=== PATIENT | male | born 1985 | race Caucasian/White ===

== ENCOUNTER 2024-03-16 23:09 | Observation (INO) | payer OTHER ==
--- NOTE | 2024-03-16 23:31 | ED ---
General Adult HPI - General Chief complaint: Nausea/Vomiting/Diarrhea Stated complaint: nausea vomitting Time Seen by Provider: 03/16/24 23:10 Source: patient, EMS Mode of arrival: EMS Limitations: no limitations - History of Present Illness Initial comments: 38-year-old male who is transferred to our facility from [facility] for intractable nausea and vomiting. Patient has been hospitalized multiple times for this. They do state that he has cyclic vomiting possibly due to marijuana. He smokes marijuana twice a week. He does have several medications to take at home when he starts vomiting include Reglan and Compazine suppositories. Patient was hospitalized last week at the [facility] for the vomiting as he was also in kidney failure. When the patient was evaluated in the emergency department today they feel that he needs higher level of care and therefore transfer the patient to us. Currently his nausea is at a 2. He denies any abdominal pain. He has not vomited since he received his medications at the outside facility at 8:00. No other alleviating, precipitating or modifying factors - Related Data Allergies Allergy/AdvReac Type Severity Reaction Status Date / Time No Known Allergies Allergy Verified 03/16/24 23:17 Review of Systems ROS Statement: Those systems with pertinent positive or pertinent negative responses have been documented in the HPI. ROS Other: All systems not noted in ROS Statement are negative. Past Medical History Additional Past Medical History / Comment(s): gastritis Past Surgical History: No Surgical Hx Reported Past Psychological History: No Psychological Hx Reported Smoking Status: Never smoker Past Alcohol Use History: None Reported Past Drug Use History: Marijuana General Exam Limitations: no limitations General appearance: alert, in no apparent distress Head exam: Present: atraumatic, normocephalic, normal inspection Eye exam: Present: normal appearance, PERRL, EOMI. Absent: scleral icterus, conjunctival injection, periorbital swelling ENT exam: Present: normal exam, mucous membranes moist Neck exam: Present: normal inspection. Absent: tenderness, meningismus, lymphadenopathy Respiratory exam: Present: normal lung sounds bilaterally. Absent: respiratory distress, wheezes, rales, rhonchi, stridor Cardiovascular Exam: Present: regular rate, normal rhythm, normal heart sounds. Absent: systolic murmur, diastolic murmur, rubs, gallop, clicks GI/Abdominal exam: Present: soft, normal bowel sounds. Absent: distended, tenderness, guarding, rebound, rigid Extremities exam: Present: normal inspection, full ROM, normal capillary refill. Absent: tenderness, pedal edema, joint swelling, calf tenderness Back exam: Present: normal inspection Neurological exam: Present: alert, oriented X3, CN II-XII intact Psychiatric exam: Present: normal affect, normal mood Skin exam: Present: warm, dry, intact, normal color. Absent: rash Course Vital Signs 03/16/24 23:10 Pulse Rate 85 Respiratory 18 Rate Blood Pressure 116/72 O2 Sat by Pulse 95 Oximetry Medical Decision Making - Medical Decision Making Was pt. sent in by a medical professional or institution (, PA, ACTIMIZE ARCHITECT, urgent care, hospital, or custodial...) When possible be specific @ -Patient was transferred from [facility] Did you speak to anyone other than the patient for history (EMS, parent, family, police, friend...)? What history was obtained from this source @ -I spoke with EMS and the transferring physician from [facility] Did you review nursing and triage notes (agree or disagree)? Why? @ -[I reviewed and agree with nursing and triage notes] Were old charts reviewed (outside hosp., previous admission, EMS record, old EKG, old radiological studies, urgent care reports/EKG's, custodial records)? Report findings @ -I reviewed patient's laboratory studies and MAR from [facility] from today. I also reviewed his blood work from March 08 and Differential Diagnosis (chest pain, altered mental status, abdominal pain women, abdominal pain men, vaginal bleeding, weakness, fever, dyspnea, syncope, headache, dizziness, GI bleed, back pain, seizure, CVA, palpatations, mental h ealth, musculoskeletal)? @ -Differential Abdominal Pain Men: Appendicitis, cholecystitis, diverticulosis, ischemic bowel, pancreatitis, hepatitis, UTI, gastroenteritis, AAA, incarcerated hernia, bowel obstruction, constipation, inflammatory bowel, hepatitis, peptic ulcer disease, splenic infarction, perforated viscus, testicular torsion, this is not meant to be an all-inclusive list EKG interpreted by me (3pts min.). @ -Not done X-rays interpreted by me (1pt min.). @ -[None done] CT interpreted by me (1pt min.). @ -[None done] U/S interpreted by me (1pt. min.). @ -[None done] What testing was considered but not performed or refused? (CT, X-rays, U/S, labs)? Why? @ -[None] What meds were considered but not given or refused? Why? @ -[None] Did you discuss the management of the patient with other professionals (professionals i.e. , PA, ACTIMIZE ARCHITECT, lab, RT, psych nurse, child protective services social worker, lease administrator, teacher, deportation officer, case preparer and liner)? Give summary @ -Spoke with Alex from [facility] will accept the patient Was smoking cessation discussed for >3mins.? @ -[No] Was critical care preformed (if so, how long)? @ -[No] Were there social determinants of health that impacted care today? How? (Home lessness, low income, unemployed, alcoholism, drug addiction, transportation, low edu. Level, literacy, decrease access to med. care, penitentiary, rehab)? @ -[No] Was there de-escalation of care discussed even if they declined (Discuss DNR or withdrawal of care, Hospice)? DNR status @ -[No] What co-morbidities impacted this encounter? (DM, HTN, Smoking, COPD, CAD, Cancer, CVA, ARF, Chemo, Hep., AIDS, mental health diagnosis, sleep apnea, morbid obesity)? @ -[None] Was patient admitted / discharged? Hospital course, mention meds given and route, prescriptions, significant lab abnormalities, going to OR and other pertinent info. @ -[hospital course] Undiagnosed new problem with uncertain prognosis? @ -[No] Drug Therapy requiring intensive monitoring for toxicity (Heparin, Nitro, Insulin, Cardizem)? @ -[No] Were any procedures done? @ -[No] Diagnosis/symptom? @ -[default] Acute, or Chronic, or Acute on Chronic? @ -[default] Uncomplicated (without systemic symptoms) or Complicated (systemic symptoms)? @ -[default] Side effects of treatment? @ -[No] Exacerbation, Progression, or Severe Exacerbation? @ -[No] Poses a threat to life or bodily function? How? (Chest pain, USA, GA, pneumonia, PE, COPD, DKA, ARF, appy, cholecystitis, CVA, Diverticulitis, Homicidal, Suicidal, threat to staff... and all critical care pts) @ -[No] Disposition Clinical Impression: Intractable nausea and vomiting, Tetrahydrocannabinol (THC) use disorder, mild, abuse Disposition: ADMITTED IP TO THIS [facility] Condition: Stable Is patient prescribed a controlled substance at d/c from ED?: No Referrals: None,Stated [Primary Care Provider] - 1-2 days Time of Disposition: 00:15 Decision to Admit Reason: Admit from EC Decision Date: 03/17/24 Decision Time: 00:16
[2024-03-17] MEDS ORDERED: NALOXONE 0.4 MG/ML 1 ML VIAL IV PRN (00:16)
[2024-03-17] MEDS ORDERED: PROCHLORPERAZINE SUPPOSITORY 25 MG SUPP RECTAL PRN (00:16)
[2024-03-17] MEDS: SODIUM CHLORIDE 0.9% 1,000 ML IV SCH (01:15)
[2024-03-17] MEDS: ONDANSETRON 4 MG/2 ML VIAL IVP PRN (01:43)
[2024-03-17] MEDS: diphenhydrAMINE 50 MG/ML 1 ML VIAL IVP STA (02:09)
[2024-03-17] MEDS: METOCLOPRAMIDE 5 MG/ML 2 ML VIAL IVP STA (02:09)
[2024-03-17] MEDS: CAPSAICIN 0.025% CREAM 60 GM TUBE TOPICAL SCH (04:13)
[2024-03-17 08:35] VITALS: RESP 16
[2024-03-17] MEDS: PANTOPRAZOLE 40 MG/10 ML VIAL IV SCH (08:44)
[2024-03-17] MEDS: IV FLUID CONTINUATION 1,000 ML IV ONE (09:00)
[2024-03-17] MEDS ORDERED: PROPOFOL 10 MG/ML 20 ML VIAL IV ONE (09:02)
[2024-03-17] MEDS ORDERED: LIDOCAINE 2% (PF) 20 MG/ML 5 ML VIAL ONE (09:02)
--- NOTE | 2024-03-17 09:12 | P.PCN ---
Date of Procedure: 03/17/24 Procedure(s) Performed: BRIEF HISTORY: Patient is a 38-year-old, pleasant, white male scheduled for an upper endoscopy as a part of evaluation intermittent episodes of epigastric pain associate with nausea vomiting for the last several years duration. He has he is episodes usually once every 3 months that last for 3 to 4 days and resolved. This episode started about 3 days ago with severe epigastric pain radiating to the back associate with nausea vomiting.. PROCEDURE PERFORMED: Esophagogastroduodenoscopy with biopsy. PREOPERATIVE DIAGNOSIS: Chronic intermittent nausea vomiting with epigastric pain of several years duration. IV sedation per anesthesia. PROCEDURE: After informed consent was obtained, the patient was brought into the endoscopy unit. IV sedation was administered by Anesthesia under continuous monitoring. Initially the Olympus GIF-140 video endoscope was inserted into the mouth. Esophagus intubated without any difficulty. It was gradually advanced into the stomach and duodenum and carefully examined. The bulb and the second part of the duodenum appeared normal. X-rays were done from the duodenum to evaluate for celiac disease. The scope at this time was withdrawn to the stomach, adequately insufflated with air, and upon careful examination, mucosa of the antrum, had gastritis and biopsies were done from this area. Mucosa of the body, cardia and the fundus appeared normal. The scope was then withdrawn into the esophagus. The GE junction was located at 45 cm from the incisors. Revealing usual erosions in the distal esophagus consistent with LA grade B reflux esophagitis. The rest of the esophagus appeared normal and the patient tolerated the procedure well. IMPRESSION: 1. Mild antral l gastritis. 2. Linear erosions of the distal esophagus consistent with LA grade B reflux esophagitis. RECOMMENDATIONS: The findings of this examination were discussed with the patient.. He may continue Protonix 40 mg twice daily. Antiemetics as needed. Advance diet as tolerated.
[2024-03-17 09:33] VITALS: TEMP 97.8
--- NOTE | 2024-03-17 09:49 | P.CONS ---
History of Present Illness - Reason for Consult Consult date: 03/17/24 Intractable nausea and vomiting Requesting physician: Syd Connell - Chief Complaint Nausea and vomiting - History of Present Illness This is a pleasant 38-year-old male who was transferred from [facility] for intractable nausea and vomiting. Patient states this is common for him he has been diagnosed with cyclic vomiting it occurs every 1 to 3 months. It has been ongoing for 5 to 6 years. As of now he is has had 5 days of nausea and vomiting. He uses Reglan and Compazine at home. He denies any history of ulcer, no NSAID use. He states he usually goes to the hospital with most occurrences if he cannot stop vomiting. Denies any hematemesis. States he does get heartburn he does not take any medication for the heartburn. He does admit to using marijuana 1 to 2 days a week. He has been told in the past that this could likely be secondary to his marijuana use. He does state that hot showers do help relieve symptoms. Blood work was reviewed from [facility] which were unremarkable. Review of Systems REVIEW OF SYSTEMS: CARDIOPULMONARY: No chest pain or shortness of breath. Gastrointestinal: Abdominal pain. Cyclic vomiting. Currently lasting 5 days. No hematemesis, coffee-ground emesis. No rectal bleeding, or melena. GENITOURINARY: No dysuria or hematuria. MUSCULOSKELETAL: Reports normal range of motion. SKIN: No rashes. No jaundice. ENDOCRINE: No chills, fevers. No excessive weight gain or loss. No polydipsia or polyuria. PSYCHIATRIC: THC/marijuana use NEUROLOGY: No change in mental status. Denies dizziness, headache. ENT: Vision unremarkable. CONSTITUTIONAL: No recent weight loss. No fever, chills, night sweats. Past Medical History Additional Past Medical History / Comment(s): gastritis,acute kidney failure due to cyclic vomiting History of Any Multi-Drug Resistant Organisms: None Reported Past Surgical History: No Surgical Hx Reported Past Psychological History: No Psychological Hx Reported Smoking Status: Former smoker Past Alcohol Use History: None Reported Past Drug Use History: Marijuana Additional Drug Use History / Comment(s): uses THC 1-2 times per week - Past Family History Mother Family Medical History: No Reported History Father Family Medical History: Unable to Obtain Medications and Allergies Home Medications Medication Instructions Recorded Confirmed Type Famotidine [Pepcid] See Taper PO DIRECTED 03/17/24 03/17/24 History Metoclopramide [Reglan] 10 mg PO TID PRN 03/17/24 03/17/24 History Allergies Allergy/AdvReac Type Severity Reaction Status Date / Time No Known Allergies Allergy Verified 03/16/24 23:17 Physical Exam Vitals: Vital Signs Temp Pulse Pulse Resp BP BP Pulse Ox 03/17/24 03:10 98.4 F 91 20 146/93 100 03/17/24 02:00 69 18 138/84 95 03/16/24 23:10 85 18 116/72 95 Intake and Output 03/16/24 03/16/24 03/17/24 14:59 22:59 06:59 Output Total 0 Balance 0 Output: Emesis 0 Other: # Voids 1 Weight 95.254 kg General appearance: The patient is alert, oriented, appears in no acute distress. HET: Head is normocephalic and atraumatic. Conjunctiva pink. Sclera anicteric. Neck: Supple without lymphadenopathy. Trachea midline. Heart: Regular. Lungs: Equal expansion, normal respiratory effort. Abdomen: Soft, nontender, nondistended. Skin: No rashes. No jaundice. Extremities: Normal skin color and turgor. No pedal edema. Neurological: No focal deficits. Alert and oriented x3. Assessment and Plan (1) Intractable nausea and vomiting Narrative/Plan: 38-year-old male with history of cyclic vomiting and regular marijuana use. This is been ongoing for 5 to 6 years and occurs every 1 to 3 months. Last sometimes up to 11 days has been having nausea and vomiting for last 5 days duration. He was transferred from outside hospital for possible endoscopic evaluation. Likely we are dealing with cyclic vomiting syndrome from marijuana use. Discussed with patient that he needs to quit any THC and will start Protonix. Patient will be scheduled for upper endoscopy. Current Visit: Yes Status: Acute Code(s): R11.2 - NAUSEA WITH VOMITING, UNSPECIFIED SNOMED Code(s): 536966861 (2) Cyclic vomiting syndrome Current Visit: Yes Status: Acute Code(s): R11.15 - CYCLICAL VOMITING SYNDROME UNRELATED TO MIGRAINE SNOMED Code(s): 76864319 Plan: 1. Continue symptomatic and supportive care 2. Antiemetics as needed 3. Protonix 40 mg daily 4. Keep n.p.o. 5. Patient scheduled for upper endoscopy 6. Recommend THC abstinence, this was discussed with patient that marijuana use would need to be stopped completely for symptoms to improve if this is part of the cyclic vomiting syndrome. Thank you for this consultation, further recommendations forthcoming after upper endoscopy. Thank you for allowing us to participate in the care of the patient, the GI service will sign off, gastroenterology will not be available at the hospital this weekend and through next week. If further evaluation by gastroenterology is required the patient will need transfer as per the primary team's discretion. Dr. Gennaro Storm I agree with the dictator's note, documented as a scribe by Michelle Álvarez.
[2024-03-17 10:38] LABS: ALT 12 U/L (10-49); AST 22 U/L (14-35); Albumin 4.2 g/dL (3.8-4.9); Albumin/Globulin Ratio 1.75 Ratio (1.60-3.17); Alkaline Phosphatase 75 U/L (41-126); Blood Urea Nitrogen 21.3 mg/dL (9.0-27.0); Calcium 9.1 mg/dL (8.7-10.3); Carbon Dioxide 23.9 mmol/L (21.6-31.8); Chloride 100 mmol/L (96-109); Globulin 2.4 g/dL (1.6-3.3); Glucose 119 mg/dL (70-110); Potassium 4.3 mmol/L (3.5-5.5); Sodium 135 mmol/L (135-145); Total Bilirubin 0.6 mg/dL (0.3-1.2); Total Protein 6.6 g/dL (6.2-8.2)
[2024-03-17 11:27] VITALS: BP 128/78; PULSE 74
--- NOTE | 2024-03-17 19:16 | P.HPIM ---
History of Present Illness H&P Date: 03/17/24 This is a 38 year old male with medical history of marijuana use, former smoker, gastritis and cyclic vomiting syndrome. Patient has been hospitalized due to cyclic vomiting. He initially present to [facility] for intractible nausea and vomiting. Patient on reglan at home but felt it made the nausea worse. He was hospitalized last week in [place] for similar symptoms. Patient was transferred down to [facility] from [place] for GI evaluation. Patient denies abdominal pain. No shortness of breath, no fever or chills. He has no hematemesis. He does report feelings of heartburn. Bloodwork from outside hospital was unremarkable. Patient has been given zofran, reglan and compazine with improvement in symptoms. GI was consulted for evaluation. REVIEW OF SYSTEMS: CONSTITUTIONAL: No fever, no malaise, no fatigue. HEENT: No recent visual problems or hearing problems. Denied any sore throat. CARDIOVASCULAR: No chest pain, orthopnea, PND, no palpitations, no syncope. PULMONARY: No shortness of breath, no cough, no hemoptysis. GASTROINTESTINAL: No diarrhea, no abdominal pain. Reports nausea and vomiting. NEUROLOGICAL: No headaches, no weakness, no numbness. HEMATOLOGICAL: Denies any bleeding or petechiae. GENITOURINARY: Denies any burning micturition, frequency, or urgency. MUSCULOSKELETAL/RHEUMATOLOGICAL: Denies any joint pain, swelling, or any muscle pain. ENDOCRINE: Denies any polyuria or polydipsia. The rest of the 14-point review of systems is negative. PHYSICAL EXAMINATION: GENERAL: The patient is alert and oriented x3, not in any acute distress. Well developed, well nourished. HEENT: Pupils are round and equally reacting to light. EOMI. No scleral icterus. No conjunctival pallor. Normocephalic, atraumatic. No pharyngeal erythema. No thyromegaly. CARDIOVASCULAR: S1 and S2 present. No murmurs, rubs, or gallops. PULMONARY: Chest is clear to auscultation, no wheezing or crackles. ABDOMEN: Soft, nontender, nondistended, normoactive bowel sounds. No palpable organomegaly. MUSCULOSKELETAL: No joint swelling or deformity. EXTREMITIES: No cyanosis, clubbing, or pedal edema. NEUROLOGICAL: Gross neurological examination did not reveal any focal deficits. SKIN: No rashes. Assessment and Plan Intractible nausea and vomiting due to cyclic vomiting syndrome from THC use Epigastric discomfort likely gastritis from frequent emesis pending further evaluation by GI services. Hx of THC use patient continues to vape Former smoker GI prophylaxis on protonix The impression and plan of care has been dictated by Alessia Miramontes Nurse Practitioner as directed. Dr. Bouchra MD I have performed a history and physical examination and medical decision making of this patient, discussed the same with the dictator, and agree with the dictators assessment and plan as written, documented as a scribe. Based on total visit time, I have performed more than 50% of this visit. Past Medical History Additional Past Medical History / Comment(s): gastritis,acute kidney failure due to cyclic vomiting History of Any Multi-Drug Resistant Organisms: None Reported Past Surgical History: No Surgical Hx Reported Past Psychological History: No Psychological Hx Reported Smoking Status: Former smoker Past Alcohol Use History: None Reported Past Drug Use History: Marijuana Additional Drug Use History / Comment(s): uses THC 1-2 times per week - Past Family History Mother Family Medical History: No Reported History Father Family Medical History: Unable to Obtain Medications and Allergies Home Medications Medication Instructions Recorded Confirmed Type Ondansetron Odt [Zofran Odt] 4 mg PO Q8HR PRN #20 tab 03/17/24 Rx Pantoprazole Sodium [Protonix] 40 mg PO BID #60 tab 03/17/24 Rx Allergies Allergy/AdvReac Type Severity Reaction Status Date / Time No Known Allergies Allergy Verified 03/16/24 23:17 Physical Exam Vitals: Vital Signs Temp Pulse Pulse Resp BP BP Pulse Ox 03/17/24 09:30 97.8 F 71 16 133/74 95 03/17/24 07:00 97.6 F 59 L 16 159/91 97 03/17/24 03:10 98.4 F 91 20 146/93 100 03/17/24 02:00 69 18 138/84 95 03/16/24 23:10 85 18 116/72 95 Intake and Output 03/16/24 03/17/24 03/17/24 22:59 06:59 14:59 Intake Total 200 Output Total 0 Balance 0 200 Intake: IV 200 Output: Emesis 0 Other: # Voids 1 Weight 95.254 kg Results CBC & Chem 7: 03/17/24 06:41 Thrombosis Risk Factor Assmnt - Choose All That Apply Any of the Below Risk Factors Present?: Yes Each Factor Represents 1 point: Obesity (BMI >25) Other Risk Factors: No Other congenital or acquired thrombophilia - If yes, enter type in comment: No Thrombosis Risk Factor Assessment Total Risk Factor Score: 1 Thrombosis Risk Factor Assessment Level: Low Risk Assessment and Plan Time with Patient: Greater than 30
--- NOTE | 2024-03-17 19:20 | P.DS ---
Providers Date of admission: 03/17/24 00:16 Attending physician: Syd Connell Consults: 03/17/24 00:16 Consult Physician Urgent Consulting Provider: Tamra Storm Consult Reason/Comments: intractable nausea and vomiting Do you want consulting provider notified?: Yes Primary care physician: Stated None Hospital Course: Final Diagnosis Intractible nausea and vomiting due to cyclic vomiting syndrome from THC use Mild antral l gastritis/liner erosions of the distal esophagus with LA grade B reflux esophagitis per EGD Epigastric discomfort likely gastritis from frequent emesis pending further evaluation by GI services. Hx of THC use patient continues to vape Former smoker GI prophylaxis on protonix Discharge Disposition Patient is stable for discharge home. Recommended to continue on protonix twice a day for the next 30 days. Patient to follow up with GI in the office. Zofran given for nausea. Advised to quit THC use. Hospital Course This is a 38 year old male with medical history of marijuana use, former smoker, gastritis and cyclic vomiting syndrome. Patient has been hospitalized due to cyclic vomiting. He initially present to [facility] for intractible nausea and vomiting. Patient on reglan at home but felt it made the nausea worse. He was hospitalized last week in [place] for similar symptoms. Patient was transferred down to [facility] from [place] for GI evaluation. Patient denies abdominal pain. No shortness of breath, no fever or chills. He has no hematemesis. He does report feelings of heartburn. Bloodwork from outside hospital was unremarkable. Patient has been given zofran, reglan and compazine with improvement in symptoms. GI was consulted for evaluation. Please see medication reconciliation for a list of current medications. Thank you for allowing us to participate in the care of this patient. The impression and plan of care has been dictated by Alessia Miramontes Nurse Practitioner as directed. Dr. Bouchra MD I have performed a history and physical examination and medical decision making of this patient, discussed the same with the dictator, and agree with the dictators assessment and plan as written, documented as a scribe. Based on total visit time, I have performed more than 50% of this visit. Patient Condition at Discharge: Stable Plan - Discharge Summary New Discharge Prescriptions: New Pantoprazole Sodium [Protonix] 40 mg PO BID #60 tab Ondansetron Odt [Zofran Odt] 4 mg PO Q8HR PRN #20 tab PRN Reason: Nausea Discontinued Famotidine [Pepcid] See Taper PO DIRECTED Metoclopramide [Reglan] 10 mg PO TID PRN PRN Reason: Nausea Discharge Medication List Ondansetron Odt [Zofran Odt] 4 mg PO Q8HR PRN #20 tab 03/17/24 [Rx] Pantoprazole Sodium [Protonix] 40 mg PO BID #60 tab 03/17/24 [Rx] Follow up Appointment(s)/Referral(s): Tamra Storm MD [STAFF PHYSICIAN] - 1 Week (please call to make an appointment!!!!! thank you ) None,Stated [Primary Care Provider] - 1-2 days Patient Instructions/Handouts: Gastritis (DC), Cyclic Vomiting Syndrome (DC) Activity/Diet/Wound Care/Special Instructions: Establish care with a PCP. Recommend to continue on pantoprazole twice a day for the next 30 [address] Follow up with [address]. Gennaro Storm in the office Discharge/Stand Alone Forms: Area PCPs Discharge Disposition: HOME SELF-CARE
[2024-03-17] MEDS ORDERED: PANTOPRAZOLE 40 MG/10 ML VIAL IV SCH (21:00)
== END 2024-03-17 12:17 | disposition home or self-care (01) ==
LOC: EC 23:09 → 6NMEDSUR 03-17 00:16
PROVIDERS: ADMIT Hospitalist; ATTEND Hospitalist
DX: K29.70 Gastritis, unspecified, without bleeding (principal); K21.00 Gastro-esophageal reflux disease with esophagitis, without bleeding; R19.7 Diarrhea, unspecified; R11.2 Nausea with vomiting, unspecified; F12.10 Cannabis abuse, uncomplicated; F17.290 Nicotine dependence, other tobacco product, uncomplicated; Z79.899 Other long term (current) drug therapy
CPT/HCPCS: 96375 ×2; 96374; 99284; 88305; 80053; 43239; G0378; J1200; J2765; J2405; J2704; C9113; J2001